=== PATIENT | female | born 1940 | race Caucasian/White ===

== ENCOUNTER 2021-09-15 07:37 | Outpatient (CLI) | payer MEDICARE, SELFPAY ==
--- NOTE | 2021-09-15 07:48 | CT_ITS ---
STUDY: CT RIGHT LOWER EXTREMITY WITHOUT CONTRAST REASON FOR EXAM: Varus deformity, right knee osteoarthritis, surgical planning. TECHNIQUE: Transaxial CT imaging of the lower extremity was performed. Coronal and sagittal images were reformatted. Individualized dose optimization techniques were used for this CT. COMPARISON: None. FINDINGS: Knee: There are marginal osteophytes, subchondral eburnation and mild joint space narrowing of the medial femorotibial compartment (coronal reconstruction 48). There are marginal osteophytes and preservation of joint space of the lateral femorotibial compartment. There are marginal osteophytes and joint space narrowing of the lateral aspect of the patellofemoral articulation (axial image 238). Normal proximal tibiofibular articulation. There is a large joint effusion. The quadriceps tendon is grossly normal. The patellar tendon is grossly normal. Normal Hoffa''s fat pad. There is chondrocalcinosis. There is mild vascular calcification. Hip: There is mild joint space narrowing and chondrocalcinosis of the left hip joint (coronal reconstruction 47). Ankle: Normal tibiotalar, posterior subtalar, talonavicular and calcaneocuboid articulations. CT/Extremity Lower without Contra IMPRESSION: Right knee osteoarthritis. Electronically Signed: Leonard Nieves MD at 14:51 EST Tel , Service support ,
== END 2021-09-15 23:59 | disposition short-term general hospital (02) ==
LOC: CT 07:41
PROVIDERS: PCP Internal Medicine; Referring Provider Specialist; Visit Provider Specialist
DX: M21.161 Varus deformity, not elsewhere classified, right knee (principal); M17.11 Unilateral primary osteoarthritis, right knee; G89.29 Other chronic pain
CPT/HCPCS: 73700

== ENCOUNTER 2021-09-28 05:56 | Day surgery (SDC) | payer MEDICARE, SELFPAY ==
--- NOTE | 2021-09-12 12:23 | HP.PCM_ITS ---
History and Physical History and Physical [facility] Patient Name: Kiara Bradley : 1940 From: SHAHID HERRERA PA-C DATE OF SURGERY: 09/28/2021 SCHEDULED PROCEDURE: right total knee arthroplasty HISTORY OF PRESENT ILLNESS: Preoperative history and physical exam was performed on September 12, 2021. This is a 80-year-old female who has had ongoing pain for the past 4 years with her right knee. Pain has been getting progressively worse over the past 2 years. Her pain has been aching. She has increased pain going up and down stairs and walking. She does have start up pain. Pain is located over the medial aspect of the knee. Pain does occasionally wake her at night. She has difficulty with activities of daily living including housework and shopping. She has difficulty with putting on and taking off her close due to the knee pain. She has had swelling and loss of motion with the right knee. She has tried conservative measures including rest, ice, elevation with minimal relief. She denies previous surgery on the right knee. Patient has tried medications including gabapentin, Advil with minimal relief. After failing conservative measures and discussing treatment options with Dr. Leon Aguayo, the patient does wish to proceed with a right total knee arthroplasty. We are obtaining surgical clearance from the primary care physician Dr. Singh. Patient reports they have been adjusting her blood pressure medications to achieve better results. She denies any chest pain, shortness of breath, fevers chills, recent infections. REVIEW OF SYSTEMS: ROS: Const: Reports weight change, but denies change in appetite and fever. CV: Denies chest pain, heart murmur and irregular heartbeat. Resp: Denies cough, pneumonia, shortness of breath, tuberculosis and wheezing. GI: Reports heartburn, but denies constipation, diarrhea, nausea, rectal itching, bloody stools and vomiting. : Denies incontinence. Musculo: Denies leg swelling, pain, trouble walking and weakness. Skin: Denies Raynaud's, history of shingles and tattoo. Neuro: Denies ambulatory dysfunction, dizziness, numbness/tingling and tremor. Psych: Denies anxiety, insomnia and stress. Apolinar/Lymph: Denies anemia, bleeding/bruising tendency and past transfusion. Reviewed, no changes. PAST MEDICAL HISTORY: Advance Care Plan: Other Directive, LIVING WILL Effective Date: 06/20/2021 PMH: Medical Problems: High Blood Pressure Accidents: None Surgical Hx: None Anesthesia Complications: None Assistive Devices: None Reviewed, no changes. SOCIAL HISTORY: SH: Marital: .Occupation: Retired.Work Status: Retired.Hand Dominance: Right- handed. Personal Habits: Cigarette Use: Never Smoked Cigarettes.Smokeless Tobacco: Never Used Smokeless Tobacco.E-Cigarette Use: Never used.Alcohol: Denies use.Drug Use: Denies Use.Enjoy Exercising: Daily. Reviewed, no changes. VITALS: Ht: 58 Wt: 134lb 8oz Wt k.009 BMI: 28.1 BP: 130/68 Pulse: 66 Resp: 16 T: 97.5 T: 36.4C Pain Level: 4 ALLERGIES: No Known Drug Allergy MEDICATIONS: Oxycodone HCL 5 mg 1-2 tab by mouth every 4 hours, Zofran 4 mg 1-2 by mouth every 8 as needed nausea, Amlodipine Besylate 10 mg 1 by mouth every day, Vitamin D3 25 mcg (1000 Ut) 2 by mouth every day, Carvedilol 12.5 mg 1po bid PRE-OP EXAM: General appearance:NORMAL Other: Eyes: Conjunctivae and lids: NORMAL Pupils: ERR Ears, Nose, Mouth, and Throat: NORMAL Other: Inspection of lips, teeth and gums: NORMAL Other: Neck: Examination of neck: no masses noted. Respiratory: Assessment of respiratory effort: NORMAL Other: Auscultation of lungs: clear to auscultation no wheezes, rhonchi or rales. Cardiovascular: Auscultation of heart: regular rate and rhythm, positive systolic murmur, no gallops or rubs. PHYSICAL EXAMINATION: Patient does walk with an antalgic gait with a flexed knee on ambulation. Right knee has a large effusion but without any erythema. She has varus alignment which is correctable on exam. There is medial joint line tenderness with the right knee. Range of motion: Lacks 3 full extension to 108 flexion. Stable to varus/valgus stress test. Stable to anterior/posterior drawer. Sensation intact to light touch. IMAGING STUDIES: Previous x-rays of the right knee reveal varus alignment with medial joint space narrowing, subchondral sclerosis, osteophyte formation consistent with severe stage IV tricompartmental osteoarthritis with bony erosions of the medial compartment IMPRESSION: 1. 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 Hypertension PLAN: Dr. Leon Aguayo did discuss and review with the patient all treatment options including surgical versus nonsurgical options. Patient does wish to proceed with the above-stated procedure. Potential risks, benefits, and complications of the procedure were discussed in detail including but not limited to , infection, nerve and blood vessel damage, persistent pain, numbness, tingling, paresthesias, blood clot, pulmonary embolism, and requirement for possible further surgery. The patient expressed full understanding and has no further questions for the doctor. Patient does agree to proceed with the above-stated procedure and has signed the surgery consent form. We discussed the current risks associated with COVID 19. This does include the risk of exposure while in the hospital. Patient was reassured local hospitals have low infection rates and are taking all necessary precautions to avoid exposure to patients. In addition, we discussed strategies that can be used to help limit exposure including those that limit the patient's time in the hospital. Also using strategies to limit the patient's need for continued inpatient services after being discharged from the hospital. Patient was notified that we will need to comply with any screening or testing the hospital wishes to perform or that surgery may be delayed for any positive results. This dictation was created using voice recognition software. Phonetic and/or grammatical errors may exist. ___ I have re-examined the patient. There are no clinical changes since date of exam. ___ See progress notes for changes. ___ Dictated on admission Date: Time: Signature:
[2021-09-15 08:36] LABS: Magnesium 2.1 mg/dL (1.6-2.6)
[2021-09-15 08:41] LABS: Albumin, Serum 3.6 g/dL (3.2-5.0)
[2021-09-28] VITALS (10 sets, daily range): BP systolic 108–134; BP diastolic 50–66; PULSE 54–67; RESP 16–18; TEMP 36.2–37; O2SAT 95–100; BMI 27.1
[2021-09-28 06:36] LABS: Bedside Glucose 147 mg/dL (70-110)
[2021-09-28] MEDS: Lactated Ringers 1,000 ML 999 ML IV ×2 (06:47→09:30)
[2021-09-28] MEDS: Acetaminophen 500 MG Tablet 1000 MG PO ×2 (06:48→14:30)
[2021-09-28] MEDS: Lactated Ringers 1,000 ML 75 ML IV (06:48)
[2021-09-28] MEDS: Celecoxib 200 MG Capsule 400 MG PO (06:49)
[2021-09-28] MEDS: Gabapentin 600 MG Tablet PO (06:49)
[2021-09-28] MEDS: Cefazolin 2 GM in 0.9% Normal Saline 100 ML IV (08:40)
[2021-09-28] MEDS: TXA 1000mg in NS100 100ml (IVPB at Incision) 660 MG IV (08:55)
[2021-09-28] MEDS: TXA 1000mg in NS100 100ml (IVPB at Closure) 660 MG IV (09:37)
--- NOTE | 2021-09-28 09:50 | OP.PCM_ITS ---
Report of Operation Date of Procedure: 09/28/21 Pre-Operative Diagnosis: Right knee primary osteoarthritis Post-Operative Diagnosis: Right knee primary osteoarthritis Surgery/Procedure Performed:: Right minimally invasive robotic total knee replacement Description of Surgical Findings:: Stable knee with good patella tracking Surgeon: Leon Aguayo assistant mechanic: Abdirahman Acuna Type of Anesthesia: Spinal Anesthesiologist: Mayur Cortes Special Medications: 2 g Ancef, 1 g TXA at incision, 1 g TXA closure, 10 mg Decadron, joint cocktail (5 mg Duramorph, 30 mL of 0.5% Ropivicaine, 1000 units of epinephrine, 30 mg of Toradol) Specimen's removed: Bony cuts Estimated Blood Loss (mL): 150 Fluids Replaced: 1600 ml Description of Procedure: Implants used: 1. [place] size 1 triathlon cruciate retaining distal femoral press-fit component 2. Kwasi size 2 press-fit tritanium tibial baseplate 3. Kwasi X3 9 mm CS polyethylene 4. Kwasi X3 29 mm asymmetric patella Brief history operative indications: 80-year-old female with history of right knee osteoarthritis with radiographic findings with loss of joint space, osteophyte formation and subchondral sclerosis. Failed conservative measures as mentioned in the H&P. Discussion of total knee arthroplasty as well as risk and benefits were discussed the patient including but not limited to blood loss, DVTs, PEs, neurovascular damage, g eneral risk of anesthesia including loss of life, and stiffness or instability were discussed with patient. Patient demonstrated understanding and was able to sign informed consent. Procedure: On the date of procedure patient's right lower extremity was marked in the preoperative area. The patient was then taken back to the operating room where the patient was placed on the table in the supine position. All bony prominences were identified a well-padded. Anesthesia assumed control of the C-spine and airway and remained controlled throughout the remainder of the procedure. A tourniquet was placed on the right upper thigh and the leg was prepped in a sterile fashion. The surgeon then scrubbed at this time .Upon reentering the room right lower extremity was draped in a standard orthopedic fashion. A timeout was then called and everyone agreed upon the side, the site, the procedure to be performed, patient's identity and antibiotics given. Esmarch bandage was used to exsanguinate the extremity and the tourniquet was placed up to 250 mmHg with the knee in flexion. A midline skin incision was made and sharp dissection was taken down through skin subcutaneous tissue and fat. The standard medial parapatellar incision was made and the patella was subluxed laterally. An Appropriate deep MCL release was done and the fat pad was resected. Our attention was then directed to the patella. The patella was everted and a flat resection was made. The knee was then flexed up in 2 femoral pins were placed inside the incision and 2 tibial pins were placed outside the incision in the medial tibia bicortically. Once this was completed the 2 checkpoints in the femur and tibia were placed. Knee was then flexed up and the bony landmarks were registered. Once this was completed knee was taken through range of motion and manually stressed allowing us to a plan for an appropriate tibial cut. The robotic arm was brought into the field sterilely and checkpoint and saw were registered. Based on the patient's deformity the tibial cut was made 2 degrees varus. At this time the tensioner was then placed in the joint and ligament tension was checked at 90 degrees and full extension. Based on the patient's ligamentous tension appropriate adjustments were made to the operative plan and ligament releases were done. Once we were happy with our operative plan with balanced flexion and extension gaps our attention was directed to the femur. The robot was brought into the field sterilely and registered. Posterior condylar cuts, anterior chamfer cuts and anterior cuts were appropriately made for a size 1 femur. When these were completed the saws were switched out in the distal femoral and posterior chamfer cuts were made. Protecting the soft tissue throughout this time. A size 2 tibial base plate was selected. the knee was flexed to 90 degrees and the soft tissues and posterior osteophytes were removed from the joint. 40 cc of the periarticular injection was injected into the posterior medial corner of the joint. The appropriate trials were then placed on the femur and tibia. A trial polyethylene was trialed to ensure proper balancing and stability of the knee. The appropriate tibial internal rotation was then marked with a bovie. Our attention was then directed to the patella. The lug holes were drilled and the patella trial was placed. Patellar tracking was checked and deemed appropriate. Once we were happy lug holes were drilled for the femur and trial components were removed. the tibia was subluxed and pinned into place and the keel was punched and drilled appropriately. Final components were verified and opened, and cement was mixed in a vacuum. Accumulate Simplex cement was used. The wound was copiously irrigated with normal saline. When the cement was ready the components were impacted into place starting with the tibia, femur and finally cementing the patella. The trial poly component was placed and the knee was placed in full extension. All excess cement was removed in the process. Once the cement had cured the tracking, alignment and balance were verified and a size 9 mm CS polyethylene component was placed. Once the final components were placed a 3-minute dilute Betadine lavage was performed followed by an Irrisept lavage was performed and the wound was copiously irrigated with normal saline solution and the periarticular injection was given. The wound was closed in a layer haney fashion using #1 vicryl interrupted sutures for the arthrotomy, 2-0 interrupted Vicryl suture for the subcuticular layer and miguel for final skin closure. A sterile compressive dressing was then placed. The patient was then awakened from anesthesia, transferred to the [facility] and transferred to the PACU for recovery. Post op plan DVT ppx: ASA 81mg BID, thigh high compression stockings Follow up: in office in 2 weeks for wound check PT: to start POD #0 at hospital, outpatient PT should be arranged. My physician social work assistant was a vital part of this case. He was important in appropriate retraction during the case, and protection of soft tissues during bony cuts. His intimate knowledge of the case and my steps aided in safe and expedient completion of the procedure as well as appropriate position of the leg during the case. He was also vital in assisting with closure under my direct supervision. Due to the complexity of this case robotic arm was used to assist in the surgery to improve accuracy and clinical outcomes. Complications No intraoperative complications Admit VTE Documentation VTE Present on Admission: No VTE Mechan Device Prophylaxis: SCD's and Thigh High DEL Hose VTE Pharm Prophylaxis ordered?: Yes
--- NOTE | 2021-09-28 09:53 | RAD_ITS ---
STUDY: X-RAY - RIGHT KNEE REASON FOR EXAM: Female, 80 years old. New total knee arthroplasty. TECHNIQUE: 2 view(s) of the knee. COMPARISON: CT of the knee dated 09/15/2021. FINDINGS: Osteopenia. Three component total knee arthroplasty in anatomic position. There are expected post-operative findings. There are no complications. No other significant abnormality is identified. RAD/Knee 1 or 2 Views IMPRESSION: Total knee arthroplasty in anatomic alignment without complications. Electronically Signed: Elvin Estrada MD at 11:44 EST , Service support ,
[2021-09-28] MEDS: Lactated Ringers 1,000 ML 125 ML IV (11:30)
[2021-09-28] MEDS: oxyCODONE 5 MG Tablet PO (12:19)
[2021-09-28] MEDS: Cefazolin 1 GM/50 ML BAG IV (12:53)
== END 2021-09-28 23:59 | disposition home or self-care (01) ==
LOC: SDC 06:03 → AC 06:03
PROVIDERS: Anesthesiology; PCP Internal Medicine; Referring Provider Specialist; Visit Provider Specialist
PROC: 0SRC0JZ Replacement of Right Knee Joint with Synthetic Substitute, Open Approach (ICD-10-PCS; CPT 27447; principal; 2021-09-28 08:15)
DX: M17.11 Unilateral primary osteoarthritis, right knee (principal); M21.161 Varus deformity, not elsewhere classified, right knee; I10 Essential (primary) hypertension; Z79.899 Other long term (current) drug therapy
CPT/HCPCS: 27447; 64447; 01402; 36415; 73560; 82040; 82962; 83735; 87081; 97162; C1776; J7120; J2405; J3475

== ENCOUNTER → 2024-12-17 | Outpatient (CLI) | payer MEDICARE, SELFPAY ==
--- NOTE | 2024-12-17 11:55 | NEURO ---
NCS and/or EMG Patient Report Ordering Doctor: Arpita Guerrero DATE OF SERVICE: 12/17/24 Kiara presents with numbness and tingling of the right hand. She notes this primarily in digits 1-3. Electrodiagnostic findings: Right median motor nerve demonstrates prolonged latency with borderline reduced amplitude and normal conduction velocity. Right ulnar motor response, including conduction across the elbow, is within normal limits. Normal median and ulnar F?waves. Prolonged median sensory latency at the wrist. Needle EMG testing was performed in the right upper limb. All muscles tested showed no evidence of denervation with normal motor unit action potentials. Electrodiagnostic impression: This is an abnormal study of the right upper limb. 1. Electrodiagnostic findings suggestive of right-sided median mononeuropathy. This is consistent with a moderate right carpal tunnel syndrome Multi Select Codes Neurology Neurology Interp Codes: 15821-47 Musc test done w/n test comp (interp) and 28002-73 Nrv cndj tst 5-6 studies (interp)
== END | disposition home or self-care (01) ==
LOC: PSN 09:32
PROVIDERS: PCP Internal Medicine; Referring Provider Physician Assistant Surgical; Visit Provider Physician Assistant Surgical
DX: G56.01 Carpal tunnel syndrome, right upper limb (principal)
CPT/HCPCS: 95886; 95909